=== PATIENT | male | born 1950 | race Two or more races ===

== ENCOUNTER 2017-12-05 08:44 | Outpatient (CLI) | payer OTHER ==
[~2017-12-05 08:44] MED LIST: ALBUTEROL0.63 MG/3 IH; AVALIDE 300-12.1 TAB PO; BICARSIM FORTE125 MG PO; CARAFATE SU1 G/10 ML PO; COLCRYS0.6 MG PO; COUMADIN4 MG PO; DOLOGEN CAPLET1 TAB PO; FLAGYL500MG PO; FUROSEMIDE20 MG PO; INCRUSE ELLI62.5 MCG IH; LEVAQUIN750 MG PO; LEVSIN/SL0.125 MG PO; LEVSIN/SL0.125 MG SL; METOCLOPRAMIDE H5 MG PO; MILLIPRED DP5 M1 PO; MILLIPRED5 MG PO; NABUMETONE500 MG PO; NORVASC10 MG PO; ONDANSETRON HCL4 MG; PERCOCET 5/3251 TAB PO; PRE PROTEIN1 TAB PO; PREDNISONE10 MG PO; PROTONIX20 MG PO; PROTONIX40 MG PO; PROVENTIL HFA6.7 GM IH; SEPTRA DS TABLE1 TAB; SOD CITRATE-CI473 ML PO; TRAMADOL HCL-AP1 TAB; XOPENEX1.25 MG/0. IH; ZOFRAN8 MG PO; ZYLOPRIM100 M1 PO
== END 2017-12-05 08:55 | disposition home or self-care (01) ==
LOC: NUCLEAR 08:44
DX: I82.402 Acute embolism and thrombosis of unspecified deep veins of left lower extremity (principal)

== ENCOUNTER 2017-12-09 12:45 | Outpatient (CLI) | payer OTHER | END 2017-12-09 14:23 | disposition home or self-care (01) | LOC: RAD 501 12:45 | DX: M25.572 Pain in left ankle and joints of left foot (principal) ==

== ENCOUNTER 2018-02-08 19:45 | Emergency (ER) | payer OTHER ==
[~2018-02-08] VITALS: Ht 177.8 cm; Wt 106.6 kg
[2018-02-08] MEDS ORDERED: MILLIPRED5 MG PO (20:08)
[2018-02-08] MEDS ORDERED: COREG CR10 MG PO (20:08)
== END 2018-02-08 23:54 | disposition home or self-care (01) ==
LOC: ER 19:45
DX: I16.0 Hypertensive urgency (principal)

== ENCOUNTER 2018-05-02 12:43 | Emergency (ER) | payer OTHER ==
[~2018-05-02] VITALS: Ht 177.8 cm; Wt 107.0 kg
[~2018-05-02 12:43] MED LIST changes: +COREG CR10 MG PO
== END 2018-05-02 16:24 | disposition home or self-care (01) ==
LOC: ER 12:43
DX: L03.113 Cellulitis of right upper limb (principal); R11.2 Nausea with vomiting, unspecified; M1A.0410 Idiopathic chronic gout, right hand, without tophus (tophi)

== ENCOUNTER 2018-07-22 09:27 | Emergency (ER) | payer OTHER ==
[~2018-07-22] VITALS: Ht 177.8 cm; Wt 108.0 kg
[2018-07-22] MEDS ORDERED: PROTONIX20 MG (09:38)
[2018-07-22] MEDS ORDERED: ULTRACET PO (14:13)
== END 2018-07-22 15:46 | disposition home or self-care (01) ==
LOC: ER 09:27
DX: M54.5 Low back pain (principal); R50.9 Fever, unspecified

== ENCOUNTER 2018-10-14 15:31 | Emergency (ER) | payer OTHER ==
[~2018-10-14] VITALS: Ht 177.8 cm; Wt 104.3 kg
[~2018-10-14 15:31] MED LIST changes: +PROTONIX20 MG; +ULTRACET PO
== END 2018-10-14 22:30 | disposition home or self-care (01) ==
LOC: ER 15:31
DX: L03.114 Cellulitis of left upper limb (principal); M10.432 Other secondary gout, left wrist

== ENCOUNTER 2018-12-13 17:19 | Emergency (ER) | payer OTHER ==
[~2018-12-13] VITALS: Ht 177.8 cm; Wt 108.9 kg
[2018-12-14] MEDS ORDERED: ULTRACET PO (03:24)
[2018-12-14] MEDS ORDERED: COLCRYS0.6 MG PO (03:24)
== END 2018-12-14 03:34 | disposition home or self-care (01) ==
LOC: ER 17:19
DX: M10.062 Idiopathic gout, left knee (principal); J45.998 Other asthma; R11.11 Vomiting without nausea

== ENCOUNTER 2019-02-09 09:36 | Emergency (ER) | payer OTHER ==
[~2019-02-09] VITALS: Ht 177.8 cm; Wt 106.6 kg
== END 2019-02-09 16:18 | disposition home or self-care (01) ==
LOC: ER 09:36
DX: M10.041 Idiopathic gout, right hand (principal); M79.641 Pain in right hand

== ENCOUNTER 2019-06-18 17:43 | Emergency (ER) | payer OTHER ==
[~2019-06-18] VITALS: Ht 180.3 cm; Wt 104.3 kg
== END 2019-06-18 21:12 | disposition home or self-care (01) ==
LOC: ER 17:43
DX: M10.032 Idiopathic gout, left wrist (principal); K29.60 Other gastritis without bleeding

== ENCOUNTER 2019-07-11 09:49 | Emergency (ER) | payer OTHER ==
[~2019-07-11] VITALS: Ht 177.8 cm; Wt 108.9 kg
[2019-07-11] MEDS ORDERED: ULTRACET (09:59)
== END 2019-07-11 14:25 | disposition home or self-care (01) ==
LOC: ER 09:49
DX: K29.60 Other gastritis without bleeding (principal)

== ENCOUNTER 2019-07-28 11:35 | Outpatient (CLI) | payer OTHER ==
[~2019-07-28 11:35] MED LIST changes: +ULTRACET
== END 2019-07-28 11:45 | disposition home or self-care (01) ==
LOC: MRI 11:35
DX: M54.5 Low back pain (principal)

== ENCOUNTER 2019-08-27 10:19 | Inpatient (IN) | payer OTHER ==
[~2019-08-27] VITALS: Ht 177.8 cm; Wt 108.9 kg
[2019-08-31] MEDS ORDERED: COLCRYS0.6 MG PO (10:59)
== END 2019-08-31 15:33 | disposition home or self-care (01) | DRG 194 ==
LOC: ER 10:19 → MEDJ 16:14 → MEDI 16:14
PROVIDERS: ADMIT Internal Medicine
PROC: 8E0ZXY6 Isolation (ICD-10-PCS; principal; 2019-08-27)
PROC: 4A033R1 Measurement of Arterial Saturation, Peripheral, Percutaneous Approach (ICD-10-PCS; 2019-08-27)
PROC: BB24ZZZ Computerized Tomography (CT Scan) of Bilateral Lungs (ICD-10-PCS; 2019-08-27)
PROC: 3E0F7GC Introduction of Other Therapeutic Substance into Respiratory Tract, Via Natural or Artificial Opening (ICD-10-PCS; 2019-08-27)
DX: J18.1 Lobar pneumonia, unspecified organism (principal); J44.1 Chronic obstructive pulmonary disease with (acute) exacerbation; N17.8 Other acute kidney failure; N18.3 Chronic kidney disease, stage 3 (moderate); M10.061 Idiopathic gout, right knee

== ENCOUNTER 2020-01-19 13:01 | Emergency (ER) | payer OTHER ==
[~2020-01-19] VITALS: Ht 180.3 cm; Wt 99.8 kg
== END 2020-01-19 20:07 | disposition home or self-care (01) ==
LOC: ER 13:01
DX: M10.042 Idiopathic gout, left hand (principal); K29.60 Other gastritis without bleeding; M79.642 Pain in left hand; Z20.828 Contact with and (suspected) exposure to other viral communicable diseases

== ENCOUNTER 2020-10-27 20:15 | Emergency (ER) | payer OTHER ==
[~2020-10-27] VITALS: Ht 177.8 cm; Wt 90.7 kg
[~2020-10-27 20:15] MED LIST changes: +CARVEDILOL3.125 MG PO; +CLARITIN10 M2; +ELIQUIS2.5 MG PO; +GABAPENTIN100 MG PO; +MONTELUKAST SOD10 MG PO; +PREDNISONE20 M1
[2020-10-27] MEDS ORDERED: CENTRUM SILVER1 EAC2 (20:31)
[2020-10-28] MEDS ORDERED: COLCHICINE0.6 MG PO (01:20)
[2020-10-28] MEDS ORDERED: ULTRACET PO (01:20)
== END 2020-10-28 01:26 | disposition home or self-care (01) ==
LOC: ER 20:15
DX: M94.0 Chondrocostal junction syndrome [Tietze] (principal); M10.072 Idiopathic gout, left ankle and foot; R06.02 Shortness of breath

== ENCOUNTER 2021-02-15 13:07 | Inpatient (IN) | payer OTHER ==
[~2021-02-15] VITALS: Ht 172.7 cm; Wt 77.1 kg
[~2021-02-15 13:07] MED LIST changes: +CENTRUM SILVER1 EAC2; +COLCHICINE0.6 MG PO
[2021-02-16] MEDS ORDERED: MORGIDOX100 MG PO (15:52)
== END 2021-02-16 16:21 | disposition home or self-care (01) | DRG 554 ==
LOC: ER 13:07 → SEC-K 22:30 → MEDI 02-16 15:43
PROVIDERS: ADMIT Internal Medicine; ATTEND Internal Medicine
PROC: 0S9D3ZX Drainage of Left Knee Joint, Percutaneous Approach, Diagnostic (ICD-10-PCS; principal; 2021-02-16)
DX: M10.062 Idiopathic gout, left knee (principal); I48.20 Chronic atrial fibrillation, unspecified; Z79.01 Long term (current) use of anticoagulants; I12.9 Hypertensive chronic kidney disease with stage 1 through stage 4 chronic kidney disease, or unspecified chronic kidney disease; N18.31 Chronic kidney disease, stage 3a; Z20.822 Contact with and (suspected) exposure to COVID-19

== ENCOUNTER 2021-03-04 12:44 | Emergency (ER) | payer OTHER ==
[~2021-03-04] VITALS: Ht 154.9 cm; Wt 81.6 kg
[~2021-03-04 12:44] MED LIST changes: +MORGIDOX100 MG PO
[2021-03-04] MEDS ORDERED: SINGULAIR 10MG10 MG PO (13:07)
== END 2021-03-05 18:39 | disposition home or self-care (01) ==
LOC: ER 12:44
DX: J45.901 Unspecified asthma with (acute) exacerbation (principal); I49.8 Other specified cardiac arrhythmias; Z03.818 Encounter for observation for suspected exposure to other biological agents ruled out

== ENCOUNTER 2021-06-16 18:03 | Emergency (ER) | payer OTHER ==
[~2021-06-16] VITALS: Ht 177.8 cm; Wt 86.2 kg
[~2021-06-16 18:03] MED LIST changes: +SINGULAIR 10MG10 MG PO
[2021-06-16] MEDS ORDERED: COLCHICINE0.6 MG PO (22:52)
[2021-06-16] MEDS ORDERED: PEPCID AC20 MG PO (22:52)
[2021-06-16] MEDS ORDERED: ULTRAM50 MG PO (22:52)
[2021-06-16] MEDS ORDERED: ONDANSETRON ODT4 MG PO (22:52)
[2021-06-16] MEDS ORDERED: MEDROLPACK PO (22:52)
== END 2021-06-17 00:02 ==
LOC: ER 18:03
DX: M10.9 Gout, unspecified (principal); M94.0 Chondrocostal junction syndrome [Tietze]; K29.60 Other gastritis without bleeding; I10 Essential (primary) hypertension; Z20.822 Contact with and (suspected) exposure to COVID-19

== ENCOUNTER 2021-09-28 08:26 | Inpatient (IN) | payer OTHER ==
[~2021-09-28] VITALS: Ht 175.3 cm; Wt 88.5 kg
[~2021-09-28 08:26] MED LIST changes: +MEDROLPACK PO; +ONDANSETRON ODT4 MG PO; +PEPCID AC20 MG PO; +ULTRAM50 MG PO
--- NOTE | 2021-09-28 09:03 | NUR ---
SE RECIBE PTE ALERTA Y ORIENTADO X3. REFIERE TENER DOLOR DE PECHO DESDE ARUNA, INDICA GONGORA TENIDO SOBRE 10 VOMITOS, TENER DOLOR ABDOMINAL, FIEBRE Y GOTA ACTIVADA EN LA MANO IZQUIERDA. PTE SE OBSERVA TEMBLOROSO CON DIFICULTAD PARA HABLAR. SE ABE S/V Y SE REALIZA EKG. EKG SE MUESTRA A DR. PISANO QUIEN INDICA COLOCAR A PTE EN CHEST PAIN. AL MOMENTO DE TRIAGE TEMPERATURA EN 101.8. SE OBSERVA MANO IZQUIERDA EDEMATOSA, CALIENTE AL TACTO. SE COLOCA PTE EN LA UNIDAD DE CHEST PAIN, SE CONECTA A MONITOR CARDIACO, OXIMETRO Y BP CUFF. SE MANTIENE EN MONITOREO COLIN.
[2021-10-04] MEDS ORDERED: CARDURA XL4 MG PO (13:30)
[2021-10-04] MEDS ORDERED: ELIQUIS2.5 MG PO (13:30)
== END 2021-10-04 14:42 | disposition home or self-care (01) | DRG 281 ==
LOC: ER 08:26 → ICU-2 13:40 → ICU 09-29 14:01 → MEDJ 10-02 21:22
PROVIDERS: ADMIT Internal Medicine; ATTEND Internal Medicine
PROC: 4A12X4Z Monitoring of Cardiac Electrical Activity, External Approach (ICD-10-PCS; principal; 2021-09-28)
PROC: B246ZZZ Ultrasonography of Right and Left Heart (ICD-10-PCS; 2021-09-28)
PROC: BW24ZZZ Computerized Tomography (CT Scan) of Chest and Abdomen (ICD-10-PCS; 2021-09-28)
PROC: 3E0F7SF Introduction of Other Gas into Respiratory Tract, Via Natural or Artificial Opening (ICD-10-PCS; 2021-09-28)
PROC: 3E0F7GC Introduction of Other Therapeutic Substance into Respiratory Tract, Via Natural or Artificial Opening (ICD-10-PCS; 2021-09-28)
PROC: BT43ZZZ Ultrasonography of Bilateral Kidneys (ICD-10-PCS; 2021-10-03)
DX: I21.4 Non-ST elevation (NSTEMI) myocardial infarction (principal); N17.8 Other acute kidney failure; L03.114 Cellulitis of left upper limb; I48.0 Paroxysmal atrial fibrillation; J45.998 Other asthma; M10.9 Gout, unspecified; M10.042 Idiopathic gout, left hand; T80.89XA Other complications following infusion, transfusion and therapeutic injection, initial encounter; I24.9 Acute ischemic heart disease, unspecified; I13.10 Hypertensive heart and chronic kidney disease without heart failure, with stage 1 through stage 4 chronic kidney disease, or unspecified chronic kidney disease; N18.30 Chronic kidney disease, stage 3 unspecified; I71.2 Thoracic aortic aneurysm, without rupture; R00.1 Bradycardia, unspecified; E66.3 Overweight; Z68.28 Body mass index [BMI] 28.0-28.9, adult; Z79.01 Long term (current) use of anticoagulants; Z20.822 Contact with and (suspected) exposure to COVID-19

== ENCOUNTER 2021-11-22 14:30 | Outpatient (CLI) | payer OTHER ==
[~2021-11-22 14:30] MED LIST changes: +CARDURA XL4 MG PO
== END 2021-11-22 14:43 | disposition home or self-care (01) ==
LOC: RAD 14:30
PROVIDERS: ATTEND Internal Medicine
DX: M54.17 Radiculopathy, lumbosacral region (principal); M54.6 Pain in thoracic spine

== ENCOUNTER 2022-01-04 08:09 | Outpatient (CLI) | payer OTHER | END 2022-01-04 08:31 | disposition home or self-care (01) | LOC: TOM 08:09 | PROVIDERS: ATTEND Internal Medicine Gastroenterology | DX: K63.5 Polyp of colon (principal); K57.30 Diverticulosis of large intestine without perforation or abscess without bleeding; Z12.11 Encounter for screening for malignant neoplasm of colon ==

== ENCOUNTER 2022-01-25 08:28 | Outpatient (CLI) | payer OTHER ==
[2022-01-25] MEDS ORDERED: CLEOCIN HCL300 MG PO (14:07)
== END 2022-01-25 08:34 | disposition home or self-care (01) ==
LOC: NUCLEAR 08:28
PROVIDERS: ATTEND Internal Medicine
DX: I74.2 Embolism and thrombosis of arteries of the upper extremities (principal); Z88.0 Allergy status to penicillin; Z91.013 Allergy to seafood; Z91.018 Allergy to other foods; Z88.8 Allergy status to other drugs, medicaments and biological substances; Z88.1 Allergy status to other antibiotic agents

== ENCOUNTER 2022-01-25 10:18 | Emergency (ER) | payer OTHER ==
[~2022-01-25] VITALS: Ht 177.8 cm; Wt 129.3 kg
[2022-01-25] MEDS ORDERED: CLEOCIN HCL300 MG PO (14:07)
== END 2022-01-25 14:27 | disposition home or self-care (01) ==
LOC: ER 10:18
DX: M10.9 Gout, unspecified (principal); Z88.0 Allergy status to penicillin; Z91.013 Allergy to seafood; I10 Essential (primary) hypertension; N28.9 Disorder of kidney and ureter, unspecified; J45.909 Unspecified asthma, uncomplicated

== ENCOUNTER 2022-06-04 12:34 | Inpatient (IN) | payer OTHER ==
[~2022-06-04] VITALS: Ht 167.6 cm; Wt 90.7 kg
[~2022-06-04 12:34] MED LIST changes: +CLEOCIN HCL300 MG PO
[2022-06-04] MEDS ORDERED: CHLORZOXAZONE500 MG PO (12:55)
--- NOTE | 2022-06-04 15:20 | NUR ---
PTE MASCULINO ALERTA Y ORIENTADO EN LAS YULIA ESFERAS ES EVALUADO PO . SE ORIENTA SOBRE ORDENES DE [place] REFIERE COMPRENDER. SE COLECTAN MUESTRAS DE LABORATORIOS Y SE CANALIZA VENA BAJO MEDIDAS ASEPTICAS. SE ADMINISTRA MEDICAMENTO, BAJO MEDIDAS ASEPTICAS. SE NOTIFICA A RADIOLOGIA PARA ESTUDIO CT.
[2022-06-11] MEDS ORDERED: ATACAND32 MG PO (12:58)
[2022-06-11] MEDS ORDERED: NIFE60TA3 PO (13:00)
[2022-06-11] MEDS ORDERED: ELIQUIS2.5 MG PO ×2 (13:01→17:24)
[2022-06-11] MEDS ORDERED: LASIX20 MG PO (13:03)
== END 2022-06-11 13:25 | disposition home or self-care (01) | DRG 280 ==
LOC: ER 12:34 → ICU-2 17:48 → MEDI 06-06 15:03
PROVIDERS: ADMIT Internal Medicine; ATTEND Internal Medicine
PROC: BW24ZZZ Computerized Tomography (CT Scan) of Chest and Abdomen (ICD-10-PCS; principal; 2022-06-04)
PROC: B24BYZZ Ultrasonography of Heart with Aorta using Other Contrast (ICD-10-PCS; 2022-06-04)
PROC: BW21ZZZ Computerized Tomography (CT Scan) of Abdomen and Pelvis (ICD-10-PCS; 2022-06-05)
PROC: BW24ZZZ Computerized Tomography (CT Scan) of Chest and Abdomen (ICD-10-PCS; 2022-06-09)
DX: I21.4 Non-ST elevation (NSTEMI) myocardial infarction (principal); J18.1 Lobar pneumonia, unspecified organism; I48.20 Chronic atrial fibrillation, unspecified; I13.10 Hypertensive heart and chronic kidney disease without heart failure, with stage 1 through stage 4 chronic kidney disease, or unspecified chronic kidney disease; N18.32 Chronic kidney disease, stage 3b; M60.80 Other myositis, unspecified site; I71.21 Aneurysm of the ascending aorta, without rupture

== ENCOUNTER 2022-07-07 12:41 | Emergency (ER) | payer OTHER ==
[~2022-07-07] VITALS: Ht 177.8 cm; Wt 81.6 kg
[~2022-07-07 12:41] MED LIST changes: +ATACAND32 MG PO; +CHLORZOXAZONE500 MG PO; +LASIX20 MG PO; +NIFE60TA3 PO
[2022-07-07] MEDS ORDERED: PROTOPIC100 GM TOP (13:01)
== END 2022-07-08 08:01 ==
LOC: ER 12:41
DX: N28.9 Disorder of kidney and ureter, unspecified (principal); M25.471 Effusion, right ankle; M25.472 Effusion, left ankle; R07.9 Chest pain, unspecified; Z91.013 Allergy to seafood; Z88.0 Allergy status to penicillin

== ENCOUNTER 2022-07-23 16:33 | Inpatient (IN) | payer OTHER ==
[~2022-07-23] VITALS: Ht 175.3 cm; Wt 61.2 kg
[~2022-07-23 16:33] MED LIST changes: +PROTOPIC100 GM TOP
[2022-07-24] MEDS ORDERED: BREO ELLIPTA 21 EACH (08:16)
[2022-07-24] MEDS ORDERED: ALLOPURINOL100 MG (08:16)
[2022-07-26] MEDS ORDERED: ELIQUIS2.5 MG PO (16:09)
[2022-07-26] MEDS ORDERED: NORFLEX100MG PO (16:09)
[2022-07-26] MEDS ORDERED: Procardia Xl 30MG TA PO (16:10)
[2022-07-26] MEDS ORDERED: ZESTRIL5 MG PO (16:13)
[2022-07-26] MEDS ORDERED: PAIN RELIEVER500 M2 PO (16:14)
[2022-07-26] MEDS ORDERED: ULORIC40 MG PO (16:15)
[2022-07-26] MEDS ORDERED: COLCHICINE0.6 MG PO (16:15)
== END 2022-07-26 17:01 | disposition home or self-care (01) | DRG 603 ==
LOC: SEC-K 16:33 → MEDJ 07-24 09:48 → SEC-K 07-24 09:52 → MEDJ 07-25 11:38
PROVIDERS: ADMIT Internal Medicine; ATTEND Internal Medicine
PROC: BW28ZZZ Computerized Tomography (CT Scan) of Head (ICD-10-PCS; principal; 2022-07-23)
PROC: BW2 Imaging, Anatomical Regions, Computerized Tomography (CT Scan) (ICD-10-PCS; 2022-07-23)
DX: L02.212 Cutaneous abscess of back [any part, except buttock and flank] (principal); I42.9 Cardiomyopathy, unspecified; N18.31 Chronic kidney disease, stage 3a; Z88.0 Allergy status to penicillin; I71.20 Thoracic aortic aneurysm, without rupture, unspecified; M60.89 Other myositis, multiple sites; R60.0 Localized edema

== ENCOUNTER 2022-08-31 13:48 | Emergency (ER) | payer OTHER ==
[~2022-08-31] VITALS: Ht 177.8 cm; Wt 104.3 kg
[~2022-08-31 13:48] MED LIST changes: +ALLOPURINOL100 MG; +BREO ELLIPTA 21 EACH; +NORFLEX100MG PO; +PAIN RELIEVER500 M2 PO; +Procardia Xl 30MG TA PO; +ULORIC40 MG PO; +ZESTRIL5 MG PO
[2022-08-31] MEDS ORDERED: XOPENEX0.63 MG/3 (14:23)
== END 2022-08-31 20:15 | disposition home or self-care (01) ==
LOC: ER 13:48
DX: T78.40XA Allergy, unspecified, initial encounter (principal); X58.XXXA Exposure to other specified factors, initial encounter; Z88.0 Allergy status to penicillin; Z91.013 Allergy to seafood

== ENCOUNTER 2022-09-04 07:52 | Outpatient (CLI) | payer OTHER ==
[~2022-09-04 07:52] MED LIST changes: +XOPENEX0.63 MG/3
== END 2022-09-04 07:53 | disposition home or self-care (01) ==
LOC: NUCLEAR 07:52
PROVIDERS: ATTEND Internal Medicine
DX: I11.0 Hypertensive heart disease with heart failure (principal); I50.20 Unspecified systolic (congestive) heart failure

== ENCOUNTER 2022-09-06 11:41 | Outpatient (CLI) | payer OTHER | END 2022-09-06 11:53 | disposition home or self-care (01) | LOC: RAD 11:41 | PROVIDERS: ATTEND Internal Medicine Pulmonary Disease | DX: R05.8 Other specified cough (principal); J01.90 Acute sinusitis, unspecified ==

== ENCOUNTER 2022-10-21 15:27 | Inpatient (IN) | payer OTHER ==
[~2022-10-21] VITALS: Ht 177.8 cm; Wt 65.3 kg
[2022-10-28] MEDS ORDERED: IPRATROPIU0.2 MG/1 M IH (13:26)
[2022-10-28] MEDS ORDERED: XOPENEX0.63 MG/3 IH (13:26)
[2022-10-28] MEDS ORDERED: INTEGRA PLUS C1 EACH PO (13:28)
[2022-10-28] MEDS ORDERED: ELIQUIS2.5 MG PO (13:28)
[2022-10-28] MEDS ORDERED: NORVASC2.5 M1 PO (13:28)
[2022-10-28] MEDS ORDERED: LOPRESSOR25 MG PO (13:29)
[2022-10-28] MEDS ORDERED: LISINOPRIL10 MG PO (13:29)
[2022-10-28] MEDS ORDERED: FUROSEMIDE20 MG PO (13:29)
[2022-10-28] MEDS ORDERED: BUDESONIDE0.5 MG/2 M IH (13:30)
[2022-10-28] MEDS ORDERED: PROTONIX20 MG PO (13:31)
== END 2022-10-28 13:51 | disposition home or self-care (01) | DRG 190 ==
LOC: ER 15:27 → ICU-2 22:29 → ICU 10-23 02:50 → SURH 10-24 22:02
PROVIDERS: ADMIT Internal Medicine; ATTEND Internal Medicine
PROC: 3E0F7GC Introduction of Other Therapeutic Substance into Respiratory Tract, Via Natural or Artificial Opening (ICD-10-PCS; 2022-10-21)
PROC: BW24ZZZ Computerized Tomography (CT Scan) of Chest and Abdomen (ICD-10-PCS; 2022-10-21)
PROC: B24BYZZ Ultrasonography of Heart with Aorta using Other Contrast (ICD-10-PCS; 2022-10-22)
PROC: 02HV33Z Insertion of Infusion Device into Superior Vena Cava, Percutaneous Approach (ICD-10-PCS; principal; 2022-10-23)
PROC: 4A12X4Z Monitoring of Cardiac Electrical Activity, External Approach (ICD-10-PCS; 2022-10-25)
DX: J44.1 Chronic obstructive pulmonary disease with (acute) exacerbation (principal); I50.43 Acute on chronic combined systolic (congestive) and diastolic (congestive) heart failure; J18.9 Pneumonia, unspecified organism; J81.1 Chronic pulmonary edema; I13.0 Hypertensive heart and chronic kidney disease with heart failure and stage 1 through stage 4 chronic kidney disease, or unspecified chronic kidney disease; I71.21 Aneurysm of the ascending aorta, without rupture; I50.9 Heart failure, unspecified; N18.30 Chronic kidney disease, stage 3 unspecified; D72.829 Elevated white blood cell count, unspecified; I48.91 Unspecified atrial fibrillation

== ENCOUNTER 2022-12-09 17:14 | Emergency (ER) | payer OTHER ==
[~2022-12-09 17:14] MED LIST changes: +BUDESONIDE0.5 MG/2 M IH; +INTEGRA PLUS C1 EACH PO; +IPRATROPIU0.2 MG/1 M IH; +LISINOPRIL10 MG PO; +LOPRESSOR25 MG PO; +NORVASC2.5 M1 PO; +XOPENEX0.63 MG/3 IH
[2022-12-09] MEDS ORDERED: TAMS0.4C PO (21:21)
== END 2022-12-09 22:12 | disposition home or self-care (01) ==
LOC: ER 17:14
DX: R30.0 Dysuria (principal); N32.89 Other specified disorders of bladder; N28.1 Cyst of kidney, acquired; I10 Essential (primary) hypertension; Z88.0 Allergy status to penicillin; Z91.013 Allergy to seafood; I25.10 Atherosclerotic heart disease of native coronary artery without angina pectoris

== ENCOUNTER 2022-12-16 09:00 | Emergency (ER) | payer OTHER ==
[~2022-12-16] VITALS: Ht 180.3 cm; Wt 79.4 kg
[~2022-12-16 09:00] MED LIST changes: +TAMS0.4C PO
== END 2022-12-16 11:16 | disposition home or self-care (01) ==
LOC: ER 09:00
DX: I50.9 Heart failure, unspecified (principal); R09.81 Nasal congestion; I10 Essential (primary) hypertension; E11.9 Type 2 diabetes mellitus without complications; Z88.0 Allergy status to penicillin; Z91.013 Allergy to seafood

== ENCOUNTER 2023-01-25 11:26 | Emergency (ER) | payer OTHER ==
[~2023-01-25] VITALS: Ht 177.8 cm; Wt 68.0 kg
[2023-01-25] MEDS ORDERED: [UNRECOGNIZED DRUG - OTHER] (11:38)
== END 2023-01-25 17:14 | disposition home or self-care (01) ==
LOC: ER 11:26
DX: M25.50 Pain in unspecified joint (principal); M25.59 Pain in other specified joint; Z20.822 Contact with and (suspected) exposure to COVID-19; I10 Essential (primary) hypertension; Z88.0 Allergy status to penicillin; Z91.013 Allergy to seafood

== ENCOUNTER 2023-05-15 08:56 | Outpatient (CLI) | payer OTHER ==
[~2023-05-15 08:56] MED LIST changes: +[UNRECOGNIZED DRUG - OTHER]
== END 2023-05-15 09:08 | disposition home or self-care (01) ==
LOC: NUCLEAR 08:56
DX: M81.0 Age-related osteoporosis without current pathological fracture (principal)

== ENCOUNTER 2025-04-10 03:43 | Emergency (ER) | payer OTHER ==
[~2025-04-10] VITALS: Ht 177.8 cm; Wt 89.8 kg
[2025-04-10] MEDS ORDERED: TOPROL XL25 M1 PO (03:47)
[2025-04-10] MEDS ORDERED: HYDRALAZINE HCL50 MG PO (03:47)
[2025-04-10] MEDS ORDERED: AMLODIPINE-OLM1 EAC2 PO (03:48)
[2025-04-10] MEDS ORDERED: AVAPRO300 MG PO (03:48)
[2025-04-10] MEDS ORDERED: FARXIGA10 MG PO (03:49)
[2025-04-10] MEDS ORDERED: ENULOSE10 GM/15 M PO (03:49)
[2025-04-10] MEDS ORDERED: GRALISE600 MG PO (03:49)
[2025-04-10] MEDS ORDERED: MAGNESIUM HYDROXIDE 400 MG/5 ML ML PO STA (07:29)
[2025-04-10] MEDS ORDERED: MINERAL OIL 30 ML BLIST.PACK PO STA (07:29)
[2025-04-10] MEDS ORDERED: LACTULOSE 20 G/30 ML BLIST.PACK PO STA (07:29)
[2025-04-10 08:53] LABS: URINE APPEARANCE Clear; URINE BILIRRUBIN Negative (NEGATIVE); URINE BLOOD Small; URINE COLOR Yellow; URINE KETONE Negative (NEGATIVE); URINE LEUKOCYTE Negative; URINE NITRATE Negative; URINE PROTEIN Trace (NEGATIVE); URINE UROBILINOGEN 0.2 E.U./dl
[2025-04-10 08:57] LABS: URINE BACTERIA 25.1 uL (0.0-1933); URINE RBC 34.7 uL (0.0-20.8); URINE WBC 3.0 uL (0.0-23.2)
[2025-04-10 09:04] LABS: BASO % 0.5 % (0.1-1.2); EOS # 0.09 (0.04-0.54); EOS % 0.8 % (0.7-7.0); LYMPH # 1.75 (1.18-3.74); LYMPH % 15.7 % (19.3-53.1); MEAN PLATELET VOLUME 10.10 fl (9.4-12.4); MONO # 0.76 (0.24-0.82); MONO % 6.8 % (4.7-12.5); NEUT # 8.46 (1.56-6.13); NEUT % 75.8 % (34.0-71.1); RED CELL DISTRIBUTION WIDTH 15.3 % (11.6-14.4); URINE CAST 0.00 uL (0.0-1.40); URINE EPITHELIAL CELLS 1.0 uL (0.0-38.8); URINE GLUCOSE 500 MG/DL (NEGATIVE)
[2025-04-10 09:16] LABS: ALT/SGPT 16.0 U/L (12-78); AST/SGOT 10.0 U/L (15-37); BILIRUBIN TOTAL 0.65 mg/dL (0.3-1.2); BUN CREA RATIO 18.0 (7.0-25.0); CREATININE SERUM 1.78 mg/dL (0.70-1.30); GFR 37.35; GLOBULINA 3.2 G/DL (2.4-3.5); GLUCOSE FASTING 92.0 mg/dL (65-100); OSMOLALITY SERUM 288.0 MOSM/KG (275-295)
== END 2025-04-10 11:15 | disposition home or self-care (01) ==
LOC: ER 03:43
PROVIDERS: Physician Assistant Medical
DX: R33.9 Retention of urine, unspecified (principal); K59.00 Constipation, unspecified; I10 Essential (primary) hypertension; Z88.0 Allergy status to penicillin; Z91.013 Allergy to seafood